=== PATIENT | female | born 1985 | race Caucasian/White ===

== ENCOUNTER 2021-05-23 15:20 | Emergency (ER) | payer OTHER ==
[~2021-05-23] VITALS: Ht 172.7 cm; Wt 72.6 kg
[~2021-05-23 15:20] MED LIST: CLONAZEPAM 0.50.5 M1 PO; LEXAPRO20 MG PO; LISINOPRIL2.5 MG PO; TOPROL XL25 MG PO
[2021-05-23 17:04] LABS: URINE BLOOD 2+ (Negative); URINE COLOR YELLOW; URINE GLUCOSE-RANDOM NEGATIVE (Negative); URINE KETONES TRACE (Negative); URINE LEUKOCYTES-REFLEX NEGATIVE (Negative); URINE NITRITE-REFLEX NEGATIVE (Negative); URINE PROTEIN 1+ (Negative); URINE SPECIFIC GRAVITY >= 1.030 (1.005-1.030)
[2021-05-23 17:05] LABS: ICTOTEST (BILI CONFIRMATORY) Negative (Negative); URINE BILIRUBIN 1+ (Negative); URINE CLARITY HAZY
[2021-05-23] MEDS ORDERED: DOXYCYCLINE 10100 MG PO (17:07)
[2021-05-23 17:11] LABS: SQUAMOUS 0-3 Few /LPF (0-3)
[2021-05-23 17:12] LABS: BACTERIA-REFLEX 1-9 Few /HPF (None Seen); CASTS None Seen /LPF (None Seen); CRYSTALS None Seen /LPF (None Seen); MUCUS 4-6 Moderate strn/LPF (None Seen); URINE RBC 3-10 Few /HPF (0-2); URINE WBC-REFLEX >25 Many /HPF (0-5)
[2021-05-23 17:16] VITALS: BP 142/89
[2021-05-23] MEDS ORDERED: ZITHROMAX250 MG PO (17:36)
== END 2021-05-23 17:17 | disposition home or self-care (01) ==
LOC: M.ERS 15:20
PROVIDERS: Physician Assistant
DX: L72.0 Epidermal cyst (principal); R30.0 Dysuria; F32.9 Major depressive disorder, single episode, unspecified; Z79.899 Other long term (current) drug therapy